=== PATIENT | female | born 1975 | race Caucasian/White ===

== ENCOUNTER 2018-03-03 19:36 | Emergency (ER) | payer BC ==
[2018-03-03] MEDS ORDERED: Tetracaine HCl/PF 0.5% 4 ML Bottle EYERT ONE (19:47)
[2018-03-03 19:49] VITALS: BP 127/84
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
== END 2018-03-03 20:30 | disposition home or self-care (01) ==
LOC: JP.ED 19:36
DX: S05.01XA Injury of conjunctiva and corneal abrasion without foreign body, right eye, initial encounter (principal); J45.909 Unspecified asthma, uncomplicated; Z88.0 Allergy status to penicillin; Z88.1 Allergy status to other antibiotic agents; Z88.8 Allergy status to other drugs, medicaments and biological substances; X58.XXXA Exposure to other specified factors, initial encounter
CPT/HCPCS: 99283; A9270

== ENCOUNTER 2021-01-19 20:40 | Emergency (ER) | payer BC ==
[2021-01-19 21:00] VITALS: BP 170/104; PULSE 111
[2021-01-19] MEDS ORDERED: methylPREDNISolone Sodium Succinate 125 MG/2 ML SDV IVPUSH ONE (21:04)
[2021-01-19] MEDS ORDERED: Famotidine 20 MG/2 ML SDV IVPUSH ONE (21:04)
[2021-01-19] MEDS ORDERED: diphenhydrAMINE 50 MG/ML SDV IVPUSH ONE (21:04)
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
== END 2021-01-19 21:59 | disposition home or self-care (01) ==
LOC: JP.ED 20:40
DX: R23.8 Other skin changes (principal); N30.00 Acute cystitis without hematuria; J45.909 Unspecified asthma, uncomplicated; Z91.048 Other nonmedicinal substance allergy status; Z88.0 Allergy status to penicillin; Z88.1 Allergy status to other antibiotic agents; Z79.899 Other long term (current) drug therapy; T49.0X5A Adverse effect of local antifungal, anti-infective and anti-inflammatory drugs, initial encounter
CPT/HCPCS: 81001; 87086; 96374; 96375; 99283; J1200; J2930; J3490; 99284

== ENCOUNTER 2022-06-22 20:23 | Emergency (ER) | payer BC ==
[2022-06-22] MEDS ORDERED: methylPREDNISolone Sodium Succinate 125 MG/2 ML SDV IV ONE (20:30)
[2022-06-22] MEDS ORDERED: Sodium Chloride 0.9% 10 ML Syringe FLUSH PRN (20:30)
[2022-06-22] MEDS ORDERED: EPINEPHrine 1 MG/ML SDV IM ONE (20:30)
[2022-06-22] MEDS ORDERED: diphenhydrAMINE 50 MG/ML SDV IVPUSH ONE (20:30)
[2022-06-22 21:03] VITALS: BP 132/83; PULSE 74
== END 2022-06-22 22:23 | disposition home or self-care (01) ==
LOC: JP.ED 20:23
DX: T78.40XA Allergy, unspecified, initial encounter (principal); Z88.0 Allergy status to penicillin; Z88.8 Allergy status to other drugs, medicaments and biological substances
CPT/HCPCS: 96372; 96374; 96375; 99283; J0171; J1200; J2930; J3490

== ENCOUNTER 2023-04-17 11:16 | Emergency (ER) | payer BC ==
[2023-04-17 11:29] VITALS: BP 204/113; PULSE 130
[2023-04-17 12:24] LABS: BASE EXCESS VENOUS 2.6 mm/L; BICARBONATE,VENOUS 26.8 mmol/L; CARBOXYHEMOGLOBIN 1.9 % (0.0-1.6); HEMATOCRIT 39.4 % (34.3-46.0); HEMOGLOBIN 13.1 g/dL (11.2-15.5); MEAN CORPUSCULAR HEMOGLOBIN 28.7 pg (31.6-35.5); MEAN CORPUSCULAR HGB CONC 33.2 g/dL (31.6-35.5); MEAN CORPUSCULAR VOLUME 86.4 fL (81.4-99.0); METHEMOGLOBIN 1.1 %; O2 SATURATION VENOUS 73.4; OXYHEMOGLOBIN 71.2 %; PCO2 VENOUS 41.7 mm/Hg; PH,VENOUS 7.424 (7.350-7.450); PO2 VENOUS 41.3 mm/Hg; RED BLOOD CELL COUNT 4.56 M/uL (3.77-5.24); TOTAL HEMOGLOBIN 13.6 g/dL (12.0-16.0); WHITE BLOOD CELL COUNT,WBC 11.7 K/uL (3.2-11.0)
[2023-04-17 12:50] LABS: ALANINE AMINOTRANSFERASE,ALT 24 U/L (12-78); ALBUMIN 3.3 g/dL (3.4-5.0); ALKALINE PHOSPHATASE 94 U/L (46-116); ANION GAP 13.4 mmol/L (5.0-14.0); ASPARTATE AMNIOTRANSFERASE,AST 23 U/L (15-37); BILIRUBIN TOTAL 0.6 mg/dL (0.2-1.0); BLOOD UREA NITROGEN,BUN 14 mg/dL (7-18); CALCIUM 8.5 mg/dL (8.5-10.1); CARBON DIOXIDE,CO2 26 mmol/L (21-32); CHLORIDE,CL 105 mmol/L (100-108); CREATININE 0.8 mg/dL (0.6-1.0); EST CRCL DRUG DOSING (CG) 73.46 mL/min; ESTIMATED GFR 90 mL/min (>60); GLUCOSE RANDOM 105 mg/dL (74-106); POTASSIUM,K 3.4 mmol/L (3.6-5.2); PROTEIN TOTAL,TP 6.7 g/dL (6.4-8.2); SODIUM,NA 141 mmol/L (140-148)
== END 2023-04-17 13:47 | disposition home or self-care (01) ==
LOC: JP.ED 11:16
DX: H66.001 Acute suppurative otitis media without spontaneous rupture of ear drum, right ear (principal); Z88.0 Allergy status to penicillin; Z91.018 Allergy to other foods; Z88.1 Allergy status to other antibiotic agents; Z86.16 Personal history of COVID-19; Z20.822 Contact with and (suspected) exposure to COVID-19
CPT/HCPCS: 36415; 71046; 71046-26; 80053; 82803; 83605; 84484; 85027; 85379; 93005; 99285; U0002

== ENCOUNTER 2024-05-10 08:01 | Day surgery (SDC) | payer BC ==
[2024-05-10] MEDS: Sodium Chloride 0.9% 1,000 ML IV SCH (08:56)
[2024-05-10] MEDS ORDERED: Propofol 200 MG/20 ML SDV ONE (09:37)
[2024-05-10] MEDS ORDERED: fentaNYL 100 MCG/2 ML SDV ONE (09:37)
[2024-05-10] MEDS ORDERED: Midazolam 1 MG/ML 2 ML SDV ONE (09:38)
[2024-05-10 11:26] VITALS: BP 147/78; PULSE 69
== END 2024-05-10 11:35 | disposition home or self-care (01) ==
LOC: JP.SDS 08:01
PROVIDERS: ATTEND Surgery
DX: Z12.11 Encounter for screening for malignant neoplasm of colon (principal); J45.909 Unspecified asthma, uncomplicated
CPT/HCPCS: 45378; J2250; J2704; J3010; J7030